=== PATIENT | male | born 1945 | race Caucasian/White ===

== ENCOUNTER 2020-06-18 10:09 | Emergency (ER) | payer MEDICARE, SELFPAY ==
--- NOTE | ~2020-06-18 | XR_ITS ---
XR chest 1V portable DATE: 06/18/2020 10:46 INDICATION: Altered mental state TECHNIQUE: Portable AP chest on June 18, 2020 at 1038 hours COMPARISON: 03/26/2018 two-view chest FINDINGS: Status post sternotomy and probable coronary bypass graft surgery. Heart size likely within normal range considering magnification associated with AP projection. Mild infiltrate or atelectasis is suggested in the left lower lung; otherwise no pulmonary infiltrate or consolidation, pleural effusion or pulmonary vascular congestion or pneumothorax. Surgical clips, right upper quadrant, likely due to cholecystectomy. IMPRESSION: Mild infiltrate or atelectasis in the left lower lung Reviewed, dictated and finalized at location [facility]. IFIED OPHTHALMIC SURGICAL ASSISTANT
--- NOTE | ~2020-06-18 | CT_ITS ---
EXAMINATION: CT brain wo con DATE: 06/18/2020 10:59 INDICATION: Altered mental status. Combativeness. TECHNIQUE: Computed tomography (CT) of the head was performed without intravenous contrast. The mA wa s adjusted according to patient size. Iterative reconstruction technique was employed. Exam dose: 60 5.33 mGy-cm total exam DLP. COMPARISON: 05/17/2011 MRI brain 05/16/2011 CT brain FINDINGS: Bilateral vertebral artery, basilar artery and bilateral carotid siphon internal carotid ar iraida calcifications. There is nonspecific diminished attenuation of the cerebral white matter, likely due to chronic small vessel ischemic changes. No intracranial mass lesion or hemorrhage or cerebrovascular accident is evident. No midline shift or mass effect effect. Mild bilateral basal ganglia calcifications. There is central and cortical cerebral and cerebellar atrophy. No subdural or epidural hematoma. Included paranasal sinuses and mastoid air cells are normally developed and aerated. No fracture or bone destruction of the cranial vault. IMPRESSION: Cerebral atherosclerosis and chronic small vessel ischemic changes of the cerebral white matter No acute intracranial finding Reviewed, dictated and finalized at [facility]. Reviewed, dictated and finalized at location [facility]. TACO
[2020-06-18 10:04] VITALS: BP 138/70; PULSE 74; RESP 18; TEMP 36.8; O2SAT 98
--- NOTE | 2020-06-18 10:10 | ECG_ITS ---
Measurements Intervals [place] Rate: 67 P: 63 [place]: 165 QRS: 40 QRSD: 105 T: 69 QT: 391 QTc: 413 Interpretive Statements SINUS RHYTHM INCOMPLETE RIGHT BUNDLE BRANCH BLOCK DELAYED PRECORDIAL R/S TRANSITION BORDERLINE ST-T WAVE ABNORMALITY- INF/HIGH LAT LEADS BASELINE ARTIFACT- I, II, III, AVR, AVL, AVF, V1-V2 BORDERLINE ECG Electronically Signed On 06-18-2020 12:41:06 CORN SHREDDER by Jack Ray D.O.
[2020-06-18] MEDS: LORazepam INJ (*CRX) 2 MG/ML VIAL (10:16)
--- NOTE | 2020-06-18 10:16 | PC.NURSE ---
1 MG Ativan given IVP per Mihai Duran PA-C at bedside VORB due to pt screaming and kicking, agitated.
--- NOTE | 2020-06-18 10:17 | PC.NURSE ---
Sitter at bedside due to pt trying to get up from stretcher.
--- NOTE | 2020-06-18 10:27 | PC.NURSE ---
Called dietary and ordered breakfast tray for pt at this time.
[2020-06-18 10:36] LABS: Basophils Percent Auto 0.4 % (0.2-1.2); Eosinophils Absolute Auto 0.1 K/mm3 (0-0.3); Eosinophils Percent Auto 1.2 % (0-4.4); Hematocrit 36.8 % (42.0-52.0); Immature Granulocyte Absolute 0.02 K/mm3 (0.00-0.031); Immature Granulocyte Percent A 0.3 % (0-0.5); Lymphocytes Absolute Auto 1.71 K/mm3 (0.9-3.2); Lymphocytes Percent Auto 24.7 % (18.3-44.2); Mean Corpuscular HGB Conc 32.6 g/dl (32-36); Mean Corpuscular Hemoglobin 29.1 pg (26-34); Mean Corpuscular Volume 89.1 fl (80-100); Mean Platelet Volume 10.7 fl (7.4-10.4); Monocytes Absolute Auto 0.7 K/mm3 (0.1-0.6); Monocytes Percent Auto 10.6 % (2.6-8.5); Neutrophils Absolute Auto 4.3 K/mm3 (1.3-6.7); Neutrophils Percent Auto 62.8 % (45.5-73.1); Platelet Count Result 162 k/mm3 (150-375); Red Blood Count 4.13 M/mm3 (4.6-6.20); Red Cell Distribution Width 13.8 % (11.5-14.5); White Blood Count 6.9 K/mm3 (4.5-10.0)
[2020-06-18 10:45] LABS: INR 1.3
--- NOTE | 2020-06-18 10:45 | PC.NURSE ---
Pt to CT scan via stretcher.
[2020-06-18 10:46] LABS: Partial Thromboplastin Time 34.5 SECONDS (22.3-36.8)
[2020-06-18 10:49] LABS: Lactic Acid Reflex 1.9 mmol/L (0.7-2.1)
[2020-06-18 10:51] LABS: Alanine Aminotransferase 26 U/L (4-50); Alkaline Phosphatase 75 U/L (38-126); Anion Gap 5 mmol/L (8-16); Aspartate Amino Transferase 33 U/L (17-59); Bilirubin,Total 1.2 mg/dL (0.2-1.3); Blood Urea Nitrogen 23 mg/dL (9-20); CRP < 0.5 mg/dL (<1.0); Calcium 8.9 mg/dL (8.4-10.2); Carbon Dioxide 33 mmol/L (22-30); Chloride 105 mmol/L (98-107); Estimated Glomerular Filt Rate > 60; Glucose 87 mg/dL (75-110); Lipase 35 U/L (23-300); Potassium 4.4 mmol/L (3.4-5.0); Sodium 143 mmol/L (137-145)
[2020-06-18 11:00] LABS: NT Pro B Type Natriuretic Pept 166 PG/ML (5-100); Troponin I < 0.012 ng/mL (0.000-0.034)
--- NOTE | 2020-06-18 11:09 | PC.NURSE ---
Per Mihai Duran PA-C, pt given 1MG Ativan IVP prior to catheterization. Pt placed on lock up worker. Family member at bedside. Pt given breakfast tray.
[2020-06-18 11:10] VITALS: PULSE 64; RESP 14; O2SAT 96
[2020-06-18 11:20] LABS: Add Urine Microscopic? YES; Appearance Urine Clear (Clear); Bacteria Urine Trace /hpf; Bilirubin Urine Negative (Negative); Blood Urine Negative (Negative); Color Urine Yellow (Yellow); Glucose Urine UA Negative (Negative); Ketones Urine Negative (Negative); Leukocyte Esterase Ur Negative LEU/UL (Negative); Mucus Urine Rare /lpf; Nitrate Urine Negative (Negative); Protein Urine 1+ mg/dL (Negative); Specific Grav Ur 1.028 (1.001-1.035); WBC Urine 0-3 /hpf
[2020-06-18] MEDS: SODIUM CHLORIDE 0.9% IV 500 ML 999 ML IV CONT (11:33)
[2020-06-18 12:05] VITALS: BP 125/78; PULSE 60; RESP 20; O2SAT 97
--- NOTE | 2020-06-18 13:11 | PC.NURSE ---
Spoke to Quyen BORJAS at [facility] - gave update on pt status.
[2020-06-18 13:12] VITALS: BP 122/68; PULSE 79; RESP 13; O2SAT 97
--- NOTE | 2020-06-18 14:02 | ED.GENADULT ---
HPI - General Adult General Chief complaint: Altered Mental Status Stated complaint: altercation/agitated Source: patient and family Mode of arrival: EMS Limitations: dementia History of Present Illness HPI narrative: Patient is a 74-year-old male with history of dementia that presents from long-term after going into a different members room and then became confused and combative with staff and was sent down to emergency department patient on arrival is demented and combative patient has orders for trazodone when he has behavioral changes and is followed by nurse practitioner at the long-term patient has otherwise not had any other injuries trauma or recent illness per EMS and long-term staff on arrival patient combative and confused is noted patient son is coming to the emergency department Related Data Home Medications Medication Instructions Recorded Confirmed divalproex 250 mg tablet,delayed 250 mg PO BID tablet 07/08/19 release Allergies Allergy/AdvReac Type Severity Reaction Status Date / Time No Known Allergies Allergy Unknown Verified 05/16/11 15:19 Review of Systems Review of Systems: ROS unobtainable: Yes unobtainable due to medical condition PMFSH Past Medical History Medical History Agitation Confusion Diarrhea Hallucinations Hypertensive heart disease without heart failure PAF (paroxysmal atrial fibrillation) Sleeping difficulties Wellness examination Family History Family History (Updated 12/16/13 @ 07:13 by DOCTOR UNKNOWN) Father Carcinoma of colon Social History Social History Smoking status: Former smoker Smoking end date: 04/21/84 Alcohol intake: never Gender identity (if verbalized by the patient): Male Exam Narrative: Exam Narrative: GENERAL: Well-appearing, well-nourished, and in no acute distress. HEAD: Normocephalic, atraumatic. EYES: PERRLA and EOMI. ENT: Nares clear, no rhinorrhea or epistaxis. Mucous membranes moist. CHEST: Clear to auscultation. No respiratory distress. No wheezes rales or rhonchi HEART: Regular rate and rhythm. No murmur heard. Normal peripheral pulses. ABDOMEN: Soft, nontender, nondistended EXTREMITIES: Normal range of motion. No edema. SKIN: Warm, dry, no rash. NEURO: No focal deficits. Cranial nerves II through XII grossly intact PSYCH: Patient confused and combative Course Course Emergency Course: Patient evaluated the emergency department son who is the power of litigation attorney is present discussion was made given the findings and discussion with primary care that the patient will be sent back to long-term for reevaluation and discussion of management going forward son is primarily interested in comfort of the patient and feels comfortable with the patient being sent back patient hemodynamically stable ABCs and vital signs intact and stable patient was given fluids and Ativan in the emergency department has been noncombative during his stay Consultations Consultation #1: Discussed case with primary care who agrees for the patient to be sent back will discussed case with son for further management Date: 06/18/20 Time: 14:05 Vital Signs Vital signs: Vital Signs Temperature 98.2 F 06/18/20 10:04 Pulse Rate 74 06/18/20 10:04 Respiratory Rate 18 06/18/20 10:04 Blood Pressure 138/70 06/18/20 10:04 Pulse Oximetry 98 06/18/20 10:04 Temperature 98.2 F 06/18/20 10:04 Pulse Rate 79 06/18/20 13:12 Respiratory Rate 13 06/18/20 13:12 Blood Pressure 122/68 06/18/20 13:12 Pulse Oximetry 97 06/18/20 13:12 Medical Decision Making MDM Narrative Medical decision making narrative: Patient in the room no distress at this time son is present discussion was made about sending the patient back primarily interested in comfort measures at the patient patient hemodynamically stable no distress will b
--- NOTE | 2020-06-18 14:14 | PC.NURSE ---
contacted [facility] to transfer patient back to [facility]. company declined. called [employer] they accepted with and eta [phone]
[2020-06-18 14:30] VITALS: BP 128/91; PULSE 89; RESP 17; O2SAT 97
--- NOTE | 2020-06-18 16:45 | PC.NURSE ---
I contacted rob due to being late picking up Mr. Carroll. Rob informed me that someone had cancelled the trip from our facility. associate director qa explained that another floor here at [facility] called and cancelled the trip. The trip cancellation was not intended for this patient. New eta for rob is [phone]
--- NOTE | 2020-06-18 17:06 | PC.NURSE ---
Dinner tray ordered for pt at this time.
[2020-06-18 17:19] VITALS: BP 117/60; PULSE 67; RESP 17; O2SAT 98
--- NOTE | 2020-06-18 17:47 | PC.NURSE ---
[facility] has arrived
== END 2020-06-18 17:47 ==
PROVIDERS: Emergency Medicine Emergency Medical Services; Emergency Provider Emergency Medicine; PCP Family Medicine
DX: R41.82 Altered mental status, unspecified (principal); I48.0 Paroxysmal atrial fibrillation; Z79.01 Long term (current) use of anticoagulants; I45.10 Unspecified right bundle-branch block; R94.31 Abnormal electrocardiogram [ECG] [EKG]; I11.9 Hypertensive heart disease without heart failure; Z87.891 Personal history of nicotine dependence; I67.2 Cerebral atherosclerosis; R91.8 Other nonspecific abnormal finding of lung field
CPT/HCPCS: 36415; 51701; 70450; 71045; 80053; 81001; 83605; 83690; 83880; 84484; 85025; 85610; 85730; 86140; 87040; 87077; 87186; 93005; 96361; 96374; 99284; J2060; J7040

== ENCOUNTER 2020-06-19 02:37 | Inpatient (IN) | payer MEDICARE, SELFPAY ==
[2020-06-19] VITALS (34 sets, daily range): BP systolic 101–180; BP diastolic 47–100; PULSE 70–101; RESP 0–22; TEMP 36.3–37.7; O2SAT 93–100
--- NOTE | 2020-06-19 | ECHO_ITS ---
Patient Info Name: Vic Carroll Age: 74 years : 1945 Gender: Male Ht: 69 in Wt: 180 lbs BSA: 2.01 m2 HR: 83 bpm BP: 119 / 54 mmHg Heart Rhythm: Sinus Rhythm Technical Quality: Good Exam Date: 06/19/2020 2:56 PM Exam Location: [facility] Patient Status: Inpatient Admit Date: 06/19/2020 Staff Ordering Physician: Isabel Joseph MD [employer] Manager: Jen Lynn RDCS Attending Provider: Home Antonio MD Exam Type: CA echo doppler color flow Study Info Indications R55 - Syncope and collapse Complete two-dimensional, color flow and Doppler transthoracic echocardiogram is performed. Summary 1. Complete two-dimensional, color flow and Doppler transthoracic echocardiogram is performed. 2. Left ventricular chamber dimension is normal. 3. Left ventricular systolic function is normal, estimated at 55-60%. 4. The left ventricular diastolic function is grade II diastolic dysfunction. 5. There is mild concentric increased left ventricular wall thickness. 6. Left atrial chamber dimension is mildly enlarged. 7. Mild aortic valve stenosis. Left Ventricle Left ventricular chamber dimension is normal. Left ventricular systolic function is normal, estimated at 55-60%. There is mild concentric increased left ventricular wall thickness. The left ventricular diastolic function is grade II diastolic dysfunction. Right Ventricle Right ventricular chamber dimension is normal. Left Atria Left atrial chamber dimension is mildly enlarged. Right Atria Right atrial chamber dimension is normal. Aortic Valve The aortic valve is trileaflet. There is moderate aortic valve sclerosis. There is mild aortic valve stenosis with a peak velocity of 211 cm/s, mean gradient of 10 mmHg, and aortic valve area of 2.8 cm2. Pulmonic Valve The pulmonic valve is not well visualized. There is mild pulmonic regurgitation. Mitral Valve The mitral valve has normal leaflets. There is trace mitral valve regurgitation. Tricuspid Valve The tricuspid valve leaflets are normal. Pericardium/Pleural The pericardium appears normal. Aorta The aortic root size at the sinus of Valsalva is normal. Left Ventricular Outflow Tract Name Value Normal LVOT 2D LVOT Diameter 2.1 cm LVOT Doppler LVOT Peak Gradient 9 mmHg LVOT Mean Gradient 6 mmHg LVOT VTI 34 cm LVOT VTI/AV VTI Ratio 0.8 LVOT Stroke Volume 116 ml LVOT CO 8.9 l/min LVOT CI 4.4 l/min/m2 Pulmonic Valve Name Value Normal RVOT Doppler RVOT Peak Gradient 3 mmHg PV Doppler PV Peak Gradient
--- NOTE | ~2020-06-19 | XR_ITS ---
EXAMINATION: XR pelvis 1-2V DATE: 06/19/2020 03:29 INDICATION: Pelvis injury. TECHNIQUE: An anteroposterior view of the pelvis was obtained. COMPARISON: None. FINDINGS: There is a subcapital fracture of left femoral neck. The distal fracture fragment demonstra esteban impaction and 10 degrees valgus angulation. There is mild osteoarthritis of the hips. There is se cha lumbar spondylosis. IMPRESSION: 1. Subchondral fracture of left femoral neck. 2. Mild osteoarthritis of the hips. Reviewed, dictated and finalized at location A. ROL SYSTEMS ENGINEER
--- NOTE | ~2020-06-19 | CT_ITS ---
EXAMINATION: CT brain wo con DATE: 06/19/2020 03:16 INDICATION: Head injury. TECHNIQUE: Computed tomography (CT) of the head was performed without intravenous contrast. The mA wa s adjusted according to patient size. Iterative reconstruction technique was employed. The dose-lengt h product was 460.49 mGy-cm. 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 There are scattered areas of low attenuation in th e cerebral white matter. There is no intracranial hemorrhage, acute infarction, or abnormal intracran ial mass lesion. The ventricles are normal in size. There are likely changes of ocular lens replaceme nt surgeries. There is mild mucosal thickening in the ethmoid sinuses. The mastoid air cells are norm al. IMPRESSION: 1. Old infarct in left cerebellum. 2. Mild nonspecific cerebral white matter disease, which likely represents chronic small vessel ische rick disease. Reviewed, dictated and finalized at location A. HENHAND IMPRESSION: 1. Old infarct in left cerebellum. 2. Mild nonspecific cerebral white matter disease, which likely represents crown and bridge dental lab technician scott small vessel ischemic disease.
--- NOTE | ~2020-06-19 | XR_ITS ---
EXAMINATION: XR hip LT min 2V DATE: 06/19/2020 06:15 INDICATION: Left hip injury. TECHNIQUE: 2 views of left hip were obtained. COMPARISON: None. FINDINGS: There is a subcapital fracture of left femoral neck. The distal fracture fragment demonstra esteban impaction and 10 degrees valgus angulation. There is mild left hip osteoarthritis. IMPRESSION: 1. Subcapital fracture of left femoral neck. 2. Mild left hip osteoarthritis. Reviewed, dictated and finalized at location A. ON SAWYER
--- NOTE | ~2020-06-19 | XR_ITS ---
EXAMINATION: XR surgery orthopedic DATE: 06/19/2020 17:37 INDICATION: Subcapital fracture of left femoral neck. TECHNIQUE: 3 intraoperative fluoroscopic views of left hip were obtained. I was not present. Fluorosc opy exposure time was 210 seconds. COMPARISON: Left hip radiographs 06/19/2020 FINDINGS: There is a subcapital fracture of left femoral neck with impaction with fixation with 3 lag screws. IMPRESSION: 1. Subcapital fracture of left femoral neck with fixation with 3 lag screws. Reviewed, dictated and finalized at location A. PILE DRIVER OPERATOR
--- NOTE | ~2020-06-19 | XR_ITS ---
EXAMINATION: XR knee LT min 4V DATE: 06/19/2020 06:02 INDICATION: Left knee injury. TECHNIQUE: 4 views of left knee were obtained. COMPARISON: None. FINDINGS: Bone alignment is normal. No fracture. There is mild tricompartmental osteoarthritis. No kn ee joint effusion. IMPRESSION: 1. Mild left knee osteoarthritis. Reviewed, dictated and finalized at location A. PPER
--- NOTE | ~2020-06-19 | XR_ITS ---
EXAMINATION: XR chest 1V DATE: 06/19/2020 03:29 INDICATION: Fall. TECHNIQUE: A single frontal view of the chest was obtained. COMPARISON: Chest single view 06/18/2020 FINDINGS: There is mild atelectasis in lingula. No pleural effusion or pneumothorax. The heart size i s normal. Median sternotomy wires and mediastinal surgical clips are seen, likely from prior coronary artery bypass grafting. Surgical clips in the right upper quadrant are likely from cholecystectomy. IMPRESSION: 1. Mild atelectasis in lingula. Reviewed, dictated and finalized at location A. CLE WORKER
--- NOTE | ~2020-06-19 | CT_ITS ---
EXAMINATION: CT abdomen pelvis wo con DATE: 06/19/2020 04:17 INDICATION: Abdominal pain. TECHNIQUE: Computed tomography (CT) of the abdomen and pelvis was performed without intravenous contr ast. Automated exposure control and iterative reconstruction technique were employed. The dose-length product was 753.20 mGy-cm. COMPARISON: None. FINDINGS: The visualized portions of the lung bases demonstrate mild atelectasis. No pleural effusion . The heart size is normal. There is an interatrial closure device. There are coronary artery calcifi cations. No pericardial effusion. There are changes of coronary artery bypass grafting. The liver and spleen are normal. There are changes of cholecystectomy. The pancreas, adrenal glands, and kidneys a re normal. There is no urolithiasis. The prostate is moderately enlarged. The appendix is normal. The re are no dilated loops of bowel. There are no pathologically enlarged lymph nodes. There is no free intraperitoneal fluid. There is a subcapital fracture of the left femoral neck. The distal fracture f ragment demonstrates impaction and mild posterior and valgus angulation. There is severe lumbar spond ylosis. IMPRESSION: 1. Subcapital fracture of left femoral neck. Reviewed, dictated and finalized at location A. TREATER
--- NOTE | ~2020-06-19 | CT_ITS ---
EXAMINATION: CT cervical spine wo con DATE: 06/19/2020 03:16 INDICATION: Neck injury. TECHNIQUE: Computed tomography (CT) of the cervical spine was performed without intravenous contrast. Automated exposure control and iterative reconstruction technique were employed. The dose-length pro duct was 605.33 mGy-cm. COMPARISON: None FINDINGS: There is kyphosis and 8 degrees levocurvature of cervical spine. Vertebral body heights are normal. There is mildly decreased disc height at C2-C3 and C4-C5 and severely decreased disc height at C5-C6, C6-C7, and C7-T1. The following disc levels are specifically discussed: C2-C3: There is mild bilateral uncovertebral joint osteoarthritis. There is mild right and severe lef t facet joint osteoarthritis. There is mild left neural foraminal stenosis. There is no central canal stenosis. C3-C4: There is mild right and moderate left uncovertebral joint osteoarthritis. There is severe bila teral facet joint osteoarthritis. There is mild bilateral neural foraminal stenosis. There is mild ce ntral canal stenosis. C4-C5: There is mild bilateral uncovertebral joint osteoarthritis. There is severe right and mild lef t facet joint osteoarthritis. There is mild bilateral neural foraminal stenosis. There is mild centra l canal stenosis. C5-C6: There is severe bilateral uncovertebral joint osteoarthritis. There is mild bilateral facet thalia int osteoarthritis. There is mild right and moderate left neural foraminal stenosis. There is mild ce ntral canal stenosis. C6-C7: There is severe bilateral uncovertebral joint osteoarthritis. There is mild bilateral facet thalia int osteoarthritis. There is moderate right and mild left neural foraminal stenosis. There is mild ce ntral canal stenosis. C7-T1: There is severe bilateral uncovertebral joint osteoarthritis. There is severe bilateral facet joint osteoarthritis. There is mild bilateral neural foraminal stenosis. There is mild central canal stenosis. IMPRESSION: 1. No fracture. 2. Severe cervical spondylosis. Reviewed, dictated and finalized at location A. ILING MACHINE SETUP OPERATOR
--- NOTE | 2020-06-19 03:09 | PC.NURSE ---
pt in CT at this time
[2020-06-19 03:40] LABS: Basophils Percent Auto 0.4 % (0.2-1.2); Eosinophils Percent Auto 0.4 % (0-4.4); Hematocrit 37.6 % (42.0-52.0); Hemoglobin 12.5 g/dL (14.0-18.0); Immature Granulocyte Absolute 0.03 K/mm3 (0.00-0.031); Immature Granulocyte Percent A 0.4 % (0-0.5); Lymphocytes Absolute Auto 1.05 K/mm3 (0.9-3.2); Lymphocytes Percent Auto 12.5 % (18.3-44.2); Mean Corpuscular HGB Conc 33.2 g/dl (32-36); Mean Corpuscular Hemoglobin 29.4 pg (26-34); Mean Corpuscular Volume 88.5 fl (80-100); Mean Platelet Volume 10.5 fl (7.4-10.4); Monocytes Absolute Auto 0.7 K/mm3 (0.1-0.6); Monocytes Percent Auto 8.2 % (2.6-8.5); Neutrophils Absolute Auto 6.6 K/mm3 (1.3-6.7); Neutrophils Percent Auto 78.1 % (45.5-73.1); Platelet Count Result 154 k/mm3 (150-375); Red Blood Count 4.25 M/mm3 (4.6-6.20); Red Cell Distribution Width 13.6 % (11.5-14.5); White Blood Count 8.4 K/mm3 (4.5-10.0)
--- NOTE | 2020-06-19 03:48 | ED.GENADULT ---
HPI - General Adult General Chief complaint: Unspecified Stated complaint: falls Time Seen by Provider: 06/19/20 02:37 Source: RN notes reviewed History of Present Illness HPI narrative: Patient presents to emergency department from [facility] for a fall. The fall was witnessed by staff and the patient had slowly gone down to his knees and down to his head rubbing his forehead on the ground causing a rug burn. Per the staff the patient has been more agitated this evening. The patient does have a history of dementia with agitation is on as needed trazodone. Patient is currently awake and alert and cooperative in bed he denies any chest pain shortness of breath abdominal pain nausea vomiting or extremity pain Related Data Home Medications Medication Instructions Recorded Confirmed divalproex 250 mg tablet,delayed 250 mg PO BID tablet 07/08/19 release Allergies Allergy/AdvReac Type Severity Reaction Status Date / Time No Known Allergies Allergy Unknown Verified 05/16/11 15:19 Review of Systems Review of Systems: Narrative: Gen.: Denies fevers or chills Eyes: Denies eye pain or visual change ENT: Denies congestion Respiratory: Denies shortness of breath CV: Denies chest pain GI: Denies abdominal pain nausea, emesis Musculoskeletal: Denies back pain or muscle pain Neuro: Denies loss of consciousness or headache Skin: See HPI Except as documented, all other systems reviewed and negative [facility] Past Medical History Medical History Agitation Confusion Diarrhea Hallucinations Hypertensive heart disease without heart failure PAF (paroxysmal atrial fibrillation) Sleeping difficulties Wellness examination Family History Family History (Updated 12/16/13 @ 07:13 by DOCTOR UNKNOWN) Father Carcinoma of colon Social History Social History Smoking status: Former smoker Smoking end date: 04/21/84 Alcohol intake: never Gender identity (if verbalized by the patient): Male Exam Narrative: Exam Narrative: APPEARANCE: No acute distress, nontoxic, resting in bed EYES: PERRL HEENT: Normocephalic, superficial abrasion over right forehead nares patent Neck: Supple no midline tenderness palpation RESPIRATORY: No respiratory distress Clear to auscultation bilaterally with no rhonchi wheezing or rales. CARDIOVASCULAR: Regular rate and rhythm without murmurs rubs or gallops. ABDOMINAL: Soft, nontender, nondistended, no rebound or guarding MUSCULOSKELETAl: Moves all extremities. No clubbing, cyanosis or edema. No tenderness palpation bilateral upper and lower extremities with full range of motion without pain NEURO: Awake and alert x 1. Following commands, speech normal, no focal deficits SKIN:: Warm, dry. Facial abrasion forehead PSYCHIATRIC: Normal affect/mood, department Course Course Emergency Course: Reviewed old records patient had a UA within the past 24 hours was normal We will get up and ambulate in ED with no difficulty I discussed with PALLETISER OPERATOR Crystal Stone patient's PCP. At this time she is in agreement with patient returning to the facility Discussed with patient results of workup and diagnosis. Discussed need for follow-up with primary care, proper use of medication, and reasons to return to the emergency department. Patient understands and agrees to current treatment plan Vital Signs Vital signs: Vital Signs Temperature 97.7 F 06/19/20 02:38 Pulse Rate 78 06/19/20 02:38 Respiratory Rate 22 H 06/19/20 02:38 Blood Pressure 121/59 L 06/19/20 02:38 Pulse Oximetry 93 06/19/20 02:38 Temperature 97.7 F 06/19/20 02:38 Pulse Rate 80 06/19/20 05:25 Respiratory Rate 19 06/19/20 05:25 Blood Pressure 109/52 L 06/19/20 05:25 Pulse Oximetry 99 06/19/20 05:25 Medical Decision Making Vital Signs Vital Signs: Vital Signs Temperature 97.7 F 06/19/20 02:38 Pulse
[2020-06-19 03:51] LABS: Partial Thromboplastin Time 31.5 SECONDS (22.3-36.8)
[2020-06-19 03:52] LABS: Alanine Aminotransferase 27 U/L (4-50); Alkaline Phosphatase 88 U/L (38-126); Anion Gap 4 mmol/L (8-16); Aspartate Amino Transferase 36 U/L (17-59); Bilirubin,Total 1.3 mg/dL (0.2-1.3); Blood Urea Nitrogen 19 mg/dL (9-20); Calcium 9.1 mg/dL (8.4-10.2); Carbon Dioxide 32 mmol/L (22-30); Chloride 105 mmol/L (98-107); Estimated Glomerular Filt Rate > 60; Glucose 109 mg/dL (75-110); Potassium 3.9 mmol/L (3.4-5.0); Sodium 141 mmol/L (137-145)
[2020-06-19 05:13] LABS: Lipase 52 U/L (23-300)
--- NOTE | 2020-06-19 05:56 | ECG_ITS ---
Measurements Intervals [place] Rate: 80 P: 68 [place]: 177 QRS: 33 QRSD: 110 T: 123 QT: 407 QTc: 470 Interpretive Statements SINUS RHYTHM NONSPECIFIC ST & T-WAVE ABNORMALITY- DIFFUSE LEADS BASELINE ARTIFACT- I, II, III, AVR, AVL, AVF, V1-V3 BORDERLINE ECG Electronically Signed On 06-19-2020 7:11:12 MECHANICAL MANUFACTURING ENGINEER by Jack Ray D.O.
[2020-06-19] MEDS: TETANUS,DIPHTHERIA,AC PERTUSSIS ADULT (0.5 ML) BOOSTRIX IM (07:05)
--- NOTE | 2020-06-19 07:23 | PC.NURSE ---
report given to reid champagne
--- NOTE | 2020-06-19 09:15 | ADMGEN ---
This patient, Vic Carroll, was admitted to Medical Room 242-. Patient/family oriented to hospital policies and general routines including ID bracelet, bed and alarms, visiting hours, pain management, procedures, bathroom and other care routines, personal items, smoking policy, room service/diet, and visiting hours. Information on how to activate the Rapid Response Team has been discussed. Patient/Family are encouraged to report perceived risks to care and to ask questions if they do not understand what they are told or what they should do.
--- NOTE | 2020-06-19 09:21 | PM.CNOR ---
Assessment and Plan Assessment and plan (1) Hip fracture: Qualifiers: Encounter type: initial encounter Fracture type: closed Laterality: left Qualified Code(s): S72.002A - Fracture of unspecified part of neck of left femur, initial encounter for closed fracture Code(s): S72.009A - Fracture of unspecified part of neck of unspecified femur, initial encounter for closed fracture Status: Acute Assessment and Plan: History, exam and radiographs reviewed. Radiographs/CT reveal a subcapital fracture of left femoral neck. Attempted to review the fracture type and injury as well as radiographs however patient has dementia and is unable to comprehend. Attempted to contact family but no answer. Patient would benefit from a CRPP due to his dementia and likelihood of noncompliance with NWB of the LLE for at minimum of 6 weeks with the potential for a nonunion. Will begin surgery planning process. Risks of surgery including but not limited to neurovascular damage, wound complications, blood clot, pulmonary embolus, stroke, myocardial infarction, anesthetic risks up to and including were reviewed. Continued pain and possible dysfunction were explained. No guarantees were offered. Patient unable to comprehend. Awaiting conversation with POA. Plan: CRPP left hip pending medical clearance and further discussion with POA. Obtain consent from POA. Bedrest. Pain control. Ice lateral hip. NPO. (2) Altered mental status: Qualifiers: Altered mental status type: unspecified Qualified Code(s): R41.82 - Altered mental status, unspecified Code(s): R41.82 - Altered mental status, unspecified Status: Acute Assessment and Plan: Patient unable to answer questions. (3) Fall: Qualifiers: Encounter type: initial encounter Qualified Code(s): W19.XXXA - Unspecified fall, initial encounter Code(s): W19.XXXA - Unspecified fall, initial encounter Status: Acute Assessment and Plan: HIGH FALL RISK History of Present Illness HPI Consult date: 06/19/20 Consult reason: fracture (Left Subcapital Femoral Neck Fracutre ) Chief complaint: Left hip fracture Narrative: 74-year-old male admitted from his assisted living facility after a witnessed fall onto bilateral knees. Per the staff at [facility], the patient had been increasingly agitated prior to his witnessed fall. He does have a history of dementia and agitation in intermittently requires use of trazodone. Upon arrival to the emergency room radiographs were obtained. Radiographs of the left hip and pelvis CT revealed a subcapital fracture of left femoral neck. Orthopedic consult requested by emergency room physician. Review of Systems Review of Systems: ROS unobtainable: Yes unobtainable due to mental status PMFSH Past Medical History Medical History Agitation Confusion Diarrhea Hallucinations Hypertensive heart disease without heart failure PAF (paroxysmal atrial fibrillation) Sleeping difficulties Wellness examination Family History Family History Father Carcinoma of colon Social History Social History Smoking status: Former smoker Smoking end date: 04/21/84 Alcohol intake: never Gender identity (if verbalized by the patient): Male Comments Attempted to contact family to review medical history. Medical history obtained from records. Patient unable to answer appropriate questions. Meds Home Medications and Allergies Home Medications Medication Instructions Recorded Confirmed Type atorvastatin 10 mg tablet 10 mg PO DAILY #90 tablet 06/18/19 06/18/19 Rx donepezil 10 mg tablet 10 mg PO ONCE #90 tablet 06/18/19 06/18/19 Rx fluticasone propionate 50 2 spray NASAL DAILY #19.8 ml 06/18/19 06/18/19 Rx
[2020-06-19] MEDS: SODIUM CHLORIDE 0.9% IV 1,000 ML 100 ML IV CONT (09:25)
--- NOTE | 2020-06-19 12:43 | WPDANESEPPF ---
Anes - Initial Pre Proc Eval Procedure: Operation Date: 06/19/20 17:00 Proposed Procedures p Closed Reduction Percutaneous Pinning Left Hip - Man Zaidi MD Date/Time: 06/19/20 12:43 Pre Op Diagnosis: Left hip fracture Patient Data Age: 74 Gender: M Height: 1.75 m Weight: 77.7 kg Last Vital Signs Temp 37.0 C 06/19/20 09:20 Pulse 79 06/19/20 09:20 Resp 18 06/19/20 09:20 BP 119/54 L 06/19/20 09:20 Pulse Ox 95 06/19/20 09:20 Allergies Allergy/AdvReac Type Severity Reaction Status Date / Time No Known Allergies Allergy Unknown Verified 06/19/20 10:36 Home Medications Medication Instructions Recorded Confirmed Type loperamide 2 mg tablet 2 mg PO Q4H PRN #30 tablet 06/18/19 06/19/20 Rx memantine 28 mg capsule 28 mg PO DAILY #90 each 06/18/19 06/19/20 Rx sprinkle,extended release 24hr divalproex 250 mg tablet,delayed 250 mg PO Q8H tablet 07/08/19 06/19/20 History release atorvastatin 10 mg PO QPM 06/19/20 06/19/20 History cetirizine 10 mg PO DAILY 06/19/20 06/19/20 History citalopram 10 mg PO DAILY 06/19/20 06/19/20 History docusate sodium [Colace] 100 mg PO BID 06/19/20 06/19/20 History donepezil 5 mg PO QPM 06/19/20 06/19/20 History fluticasone propionate 2 spray NASAL DAILY PRN 06/19/20 06/19/20 History losartan 50 mg PO QPM 06/19/20 06/19/20 History rivaroxaban [Xarelto] 20 mg PO QPM 06/19/20 06/19/20 History trazodone 50 mg PO QPM 06/19/20 06/19/20 History Laboratory Tests 06/19/20 06/19/20 06/19/20 03:34 03:34 03:34 WBC 8.4 K/mm3 K/mm3 (4.5-10.0) RBC 4.25 M/mm3 L M/mm3 (4.6-6.20) Hgb 12.5 g/dL L g/dL (14.0-18.0) Hct 37.6 % L % (42.0-52.0) MCV 88.5 fl fl (80-100) MCH 29.4 pg pg (26-34) MCHC 33.2 g/dl g/dl (32-36) RDW 13.6 % % (11.5-14.5) Plt Count 154 k/mm3 k/mm3 (150-375) MPV 10.5 fl H fl (7.4-10.4) Immature Gran % (Auto) 0.4 % % (0-0.5) Neut % (Auto) 78.1 % H % (45.5-73.1) Lymph % (Auto) 12.5 % L % (18.3-44.2) [place] % (Auto) 8.2 % % (2.6-8.5) Eos % (Auto) 0.4 % % (0-4.4) Baso % (Auto) 0.4 % % (0.2-1.2) Lymph # (Auto) 1.05 K/mm3 K/mm3 (0.9-3.2) [place] # (Auto) 0.7 K/mm3 H K/mm3 (0.1-0.6) Eos # (Auto) 0.0 K/mm3 K/mm3 (0-0.3) Baso # (Auto) 0.0 K/mm3 K/mm3 (0.0-0.1) Abs Immat Gran (auto) 0.03 K/mm3 K/mm3 (0.00-0.031) Absolute Neuts (auto) 6.6 K/mm3 K/mm3 (1.3-6.7) Absolute Nucleated RBC 0.0 K/mm3 K/mm3 (0.0-0.012) Nucleated RBC % 0.0 % % (0.0-0.2) PT 14.0 Seconds Seconds (11.1-14.7) INR 1.0 APTT 31.5 SECONDS SECONDS (22.3-36.8) Sodium 141 mmol/L mmol/L (137-145) Potassium 3.9 mmol/L mmol/L (3.4-5.0) Chloride 105 mmol/L mmol/L (98-107) Carbon Dioxide 32 mmol/L H mmol/L (22-30) Anion Gap 4 mmol/L L mmol/L (8-16) BUN 19 mg/dL mg/dL (9-20) Creatinine 0.70 mg/dL mg/dL (0.7-1.3) Estim Creat Clear Calc Not Reportable Estimated GFR > 60 (59 - ) Glucose 109 mg/dL mg/dL (75-110) Calcium 9.1 mg/dL mg/dL (8.4-10.2) Total Bilirubin 1.3 mg/dL mg/dL (0.2-1.3) AST 36 U/L U/L (17-59) ALT 27 U/L U/L (4-50) Alkaline Phosphatase 88 U/L U/L (38-126) Total Protein 7.0 g/dL g/dL (6.3-8.2) Albumin 4.0 g/dL g/dL (3.5-5.1) Lipase Blood Type Antibody Screen 06/19/20 06/19/20 03:34 05:56 WBC RBC Hgb Hct MCV MCH MCHC RDW Plt Count MPV Immature Gran % (Auto) Neut % (Auto) Lymph % (Auto) [place] % (Auto) Eos % (Au
--- NOTE | 2020-06-19 13:52 | PM.IMHP ---
H&P: HPI History of Present Illness Date/Time: 06/19/20 13:52 Chief Complaint: Fall and fracture of the hip. Narrative: Vic Carroll is a 74 [facility] with history of dementia and agitation, patient had been agitated apparently patient had a witnessed fall by correction staff he landed on in his knees and has a rug burn on his forehead and patient was brought to the emergency department for further evaluation, hip x-ray showed subchondral fracture of left femoral neck. Patient is a poor historian unable to provide any review of symptoms or history, most of the history is recorded from electronic chart, patient chest x-ray showed patient Has Had CABG suggesting patient has a coronary artery disease to further evaluate we have ordered cardiac echo and further recommendation to follow, patient will be seen by orthopedic surgery team and will follow-up and plan. Review of Systems Review of Systems: ROS unobtainable: Yes unobtainable due to medical condition PMFSH Past Medical History Medical History (Updated 06/19/20 @ 14:05 by Isabel Joseph MD) Agitation Confusion Coronary artery disease involving [place] coronary artery of [place] heart Dementia, unspecified, without behavioral disturbance Diarrhea Essential hypertension Hendrix disease Hallucinations Hereditary hemochromatosis Hip fracture Hyperlipidemia Hypertensive heart disease without heart failure Non-alcoholic fatty liver disease Old [place] (myocardial infarction) PAF (paroxysmal atrial fibrillation) Sleeping difficulties Wellness examination Surgical History Surgical History (Updated 06/19/20 @ 12:45 by Andrews Pruitt MD) Hx of CABG S/P PDA repair Family History Family History Father Carcinoma of colon Social History Social History Smoking status: Unknown if ever smoked Smoking end date: 04/21/84 Alcohol intake: never Substance use: never Substance use type: does not use Gender identity (if verbalized by the patient): Male Sexual Orientation (if Verbalized by the Patient): Straight or Heterosexual Spiritual care concerns: No Meds Home Medications and Allergies Home Medications Medication Instructions Recorded Confirmed Type loperamide 2 mg tablet 2 mg PO Q4H PRN #30 tablet 06/18/19 06/19/20 Rx memantine 28 mg capsule 28 mg PO DAILY #90 each 06/18/19 06/19/20 Rx sprinkle,extended release 24hr divalproex 250 mg tablet,delayed 250 mg PO Q8H tablet 07/08/19 06/19/20 History release atorvastatin 10 mg PO QPM 06/19/20 06/19/20 History cetirizine 10 mg PO DAILY 06/19/20 06/19/20 History citalopram 10 mg PO DAILY 06/19/20 06/19/20 History docusate sodium [Colace] 100 mg PO BID 06/19/20 06/19/20 History donepezil 5 mg PO QPM 06/19/20 06/19/20 History fluticasone propionate 2 spray NASAL DAILY PRN 06/19/20 06/19/20 History losartan 50 mg PO QPM 06/19/20 06/19/20 History rivaroxaban [Xarelto] 20 mg PO QPM 06/19/20 06/19/20 History trazodone 50 mg PO QPM 06/19/20 06/19/20 History Allergies Allergy/AdvReac Type Severity Reaction Status Date / Time No Known Allergies Allergy Unknown Verified 06/19/20 10:36 Vital Signs Vital Signs - 24 hr 06/19/20 02:38 06/19/20 03:22 06/19/20 03:31 Temperature 97.7 F Pulse Rate 78 Respiratory Rate 22 H 0 L Blood Pressure 121/59 L 139/73 Pulse Oximetry 93 93 06/19/20 03:55 06/19/20 04:02 06/19/20 04:33 Temperature Pulse Rate 70 Respiratory Rate 12 Blood Pressure 138/74 131/68 134/70 Pulse Oximetry 99 06/19/20 04:46 06/19/20 05:25 06/19/20 05:53 Temperature Pulse Rate 80 Respiratory Rate 19 Blood Pressure 124/79 109/52 L 127/61 Pulse Oximetry 99 06/19/20 06:01 06/19/20 06:32 06/19/20 07:02 Temperature Pulse Rate Respiratory Rate Blood Pressure 101/65 122/52 L 124/54 L Pulse Oximetry
--- NOTE | 2020-06-19 15:41 | PC.NURSE ---
To OR per bed 1520. Consent signed by Darren sheth/ [facility].
[2020-06-19] MEDS: LACTATED RINGERS 1,000 ML 30 ML IV CONT (15:42)
[2020-06-19] MEDS: TRANEXAMIC ACID 1,000MG/ISO100 1,000 MG/100 ML BAG 200 MG IVPB (15:53)
--- NOTE | 2020-06-19 15:54 | SUR.PREOP ---
1530; PT ARRIVED INTO PREOP PER BED. PT ALERT TO SELF ONLY. RESTLESS. FOLDING SHEETS ON BED. PT VERY CONFUSED/DISORIENTED.
--- NOTE | 2020-06-19 15:56 | SUR.PREOP ---
PT DOES NOT TOLERATE SHAVING OF LT HIP. PT TALKING NONSENSE. CALM. DOES GET AGITATED EASILY. NURSE AT BEDSIDE
--- NOTE | 2020-06-19 16:03 | SUR.PREOP ---
PT REMOVED ID BRACELET. NEW ID BRACELET PLACED ON RT ANKLE
--- NOTE | 2020-06-19 16:16 | WPDHPUPDATE1 ---
History and Physical Update Update Date/Time: 06/19/20 16:16 History and Physical has been reviewed, including an updated exam of the patient. There are NO changes in the patient's condition. Risks, benefits, and alternatives have been discussed and questions answered. Patient agrees to proceed with procedure.
[2020-06-19] MEDS: ceFAZolin 2 GM/D5W 50 ML 2 GM/50 ML BAG IVPB ×2 (16:19→21:07)
--- NOTE | 2020-06-19 17:37 | PM.PROC ---
Procedure Note - Detailed Date of procedure: 06/19/20 Pre-op diagnosis: Left hip fracture LEFT FEMORAL NECK FRACTURE Post-op diagnosis: same Procedure performed: CLOSED REDUCTION PERCUTANEOUS PINNING LEFT FEMORAL NECK Description of procedure: THE PATIENT WAS TAKEN TO THE OPERATING ROOM AND PLACED UNDER GENERAL ANESTHESIA. THE PATIENT WAS PLACED ON A FRACTURE TABLE. USING MILD TRACTION AND INTERNAL ROTATION THE LEFT FEMORAL NECK FRACTURE WAS REDUCED TO ANATOMICAL POSITION. NEXT THE LEFT LOWER EXTREMITY WAS PREPPED AND DRAPED IN THE STERIL FASHION FROM THE KNEE TO THE ILIAC CREST. THE INCISION WAS MADE ON THE LATERAL HIP JUST DISTAL TO THE GREATER TROCHANTER DOWN TO THE BONE. BLEEDERS WERE CAUTERIZED. 3 GUIDE PINS WERE PLACED THROUGH THE FEMORAL NECK AND PASSED THE FRACTURE SITE AND IN TO THE SUBCHONDRAL BONE OF THE FEMORAL HEAD. 3, 7.3 CANNULATED SCREWS WERE PLACED OVER THE GUIDE PINS AND THESE WERE SHOWN TO BE IN GOOD POSITION PER FLUOROSCOPY ON BOTH THE AP AND LATERAL VIEWS. THE ALL HAD EXCELLENT BITES. THE WOUND WAS WASHED WELL. THE DEEP FASCIAL LAYER WAS APPROXIMATED WITH #1 VICRYL SUTURE, THE SUBCUTANEOUS LAYER WITH 2-0 VICRYL AND THE SKIN WAS APPROXIMATED WITH RUSS. A STERILE DRESSING WAS PLACED. THE PATIENT WAS TRANSFERRED TO A REGULAR BED AND WAS EXTUBATED AND SENT TO RECOVERY ROOM Anesthesia: LINDSAY Surgeon: Man Zaidi MD Estimated blood loss (mL): 50 Complications: No immediate complications Condition: stable Disposition: PACU
[2020-06-19] MEDS: fentaNYL CITRATE INJ (*CRX) 100 MCG/2 ML VIAL 25 MCG IV PUSH ×2 (18:23→18:35)
[2020-06-19] MEDS: NALOXONE HCL 0.4 MG/ML VIAL IV PUSH (21:30)
[2020-06-19] MEDS: SODIUM CHLORIDE 0.9% IV 1,000 ML 125 ML IV CONT (21:30)
--- NOTE | 2020-06-19 21:39 | PC.NURSE ---
Pt is lethargic but arousable at this time opened eyes and said yes when name was spoken and then spit. Pt is confused and unable to follow direction and then closed eyes.
[2020-06-20 00:33] VITALS: BP 149/75; PULSE 86; RESP 14; TEMP 37.2; O2SAT 95
[2020-06-20 04:33] VITALS: BP 149/93; PULSE 99; RESP 16; TEMP 36.9; O2SAT 93
[2020-06-20] MEDS: DIVALPROEX SODIUM DR 250 MG TABEC PO ×3 (05:12→20:41)
[2020-06-20] MEDS: ceFAZolin 2 GM/D5W 50 ML 2 GM/50 ML BAG IVPB ×2 (05:12→13:17)
[2020-06-20 06:38] LABS: Basophils Percent Auto 0.2 % (0.2-1.2); Eosinophils Percent Auto 0.1 % (0-4.4); Hematocrit 35.3 % (42.0-52.0); Hemoglobin 11.6 g/dL (14.0-18.0); Immature Granulocyte Absolute 0.07 K/mm3 (0.00-0.031); Immature Granulocyte Percent A 0.5 % (0-0.5); Lymphocytes Absolute Auto 0.96 K/mm3 (0.9-3.2); Lymphocytes Percent Auto 6.8 % (18.3-44.2); Mean Corpuscular HGB Conc 32.9 g/dl (32-36); Mean Corpuscular Hemoglobin 28.6 pg (26-34); Mean Corpuscular Volume 86.9 fl (80-100); Mean Platelet Volume 11.1 fl (7.4-10.4); Monocytes Percent Auto 7.3 % (2.6-8.5); Neutrophils Percent Auto 85.1 % (45.5-73.1); Platelet Count Result 153 k/mm3 (150-375); Red Blood Count 4.06 M/mm3 (4.6-6.20); Red Cell Distribution Width 13.5 % (11.5-14.5); White Blood Count 14.1 K/mm3 (4.5-10.0)
[2020-06-20 06:53] LABS: Anion Gap 4 mmol/L (8-16); Blood Urea Nitrogen 13 mg/dL (9-20); Calcium 8.4 mg/dL (8.4-10.2); Carbon Dioxide 32 mmol/L (22-30); Chloride 104 mmol/L (98-107); Estimated CRCL calculation 69 ml/min; Estimated Glomerular Filt Rate > 60; Glucose 119 mg/dL (75-110); Potassium 4.1 mmol/L (3.4-5.0); Sodium 140 mmol/L (137-145)
[2020-06-20] MEDS: MORPHINE SULFATE (*CRX) 2 MG/ML INJ IV PUSH ×2 (06:55→12:36)
[2020-06-20] MEDS: SODIUM CHLORIDE 0.9% IV 1,000 ML 125 ML IV CONT (08:03)
--- NOTE | 2020-06-20 08:05 | P.PNAN_ITS ---
Anes - Prog Note Post-Op Date/Time: 06/20/20 08:05 Cardiovascular status: normal Respiratory status: normal Airway patency: baseline Mental status: baseline Post-Op hydration status: normal Vital Signs: Last Vital Signs Temp 36.9 C 06/20/20 04:33 Pulse 99 06/20/20 04:33 Resp 16 06/20/20 04:33 BP 149/93 H 06/20/20 04:33 Pulse Ox 93 06/20/20 04:33 Pain Score (VAS): 3 I/O: Intake & Output 06/19/20 06/20/20 06/20/20 23:59 07:59 15:59 Intake Total 300 1050 Output Total 150 1400 Balance 150 -350 Laboratory Tests 06/20/20 06:23 06/20/20 06:23 06/19/20 06/20/20 06/20/20 05:56 06:23 06:23 WBC 14.1 H RBC 4.06 L Hgb 11.6 L Hct 35.3 L MCV 86.9 MCH 28.6 MCHC 32.9 RDW 13.5 Plt Count 153 MPV 11.1 H Immature Gran % (Auto) 0.5 Neut % (Auto) 85.1 H Lymph % (Auto) 6.8 L [place] % (Auto) 7.3 Eos % (Auto) 0.1 Baso % (Auto) 0.2 Lymph # (Auto) 0.96 [place] # (Auto) 1.0 H Eos # (Auto) 0.0 Baso # (Auto) 0.0 Abs Immat Gran (auto) 0.07 H Absolute Neuts (auto) 12.0 H Absolute Nucleated RBC 0.0 Nucleated RBC % 0.0 Sodium 140 Potassium 4.1 Chloride 104 Carbon Dioxide 32 H Anion Gap 4 L BUN 13 D Creatinine 0.80 Estim Creat Clear Calc 69 Estimated GFR > 60 Glucose 119 H Calcium 8.4 Blood Type O Positive Antibody Screen Negative Post-procedural complaints: none Patient Feedback: Patient satisfied with anesthetic care.
[2020-06-20] MEDS: CITALOPRAM HYDROBROMIDE 10 MG TABLET PO (08:56)
[2020-06-20] MEDS: DOCUSATE SODIUM 100 MG CAPSULE PO (08:56)
[2020-06-20] MEDS: MEMANTINE HCL XR 28 MG CAP PO (08:57)
[2020-06-20] MEDS: LORATADINE 10 MG TABLET PO (08:57)
--- NOTE | 2020-06-20 09:41 | PM.PNORT ---
Progress Note: A&P Assessment and Plan (1) Fracture of hip, left, closed: Qualifiers: Encounter type: subsequent encounter Fracture healing: with routine healing Qualified Code(s): S72.002D - Fracture of unspecified part of neck of left femur, subsequent encounter for closed fracture with routine healing Code(s): S72.002A - Fracture of unspecified part of neck of left femur, initial encounter for closed fracture Status: Acute Assessment and Plan: POD #1: CRPP Left Hip Continue PT/OT. TTWB. HIGH FALL RISK. Continue pain control. IV tylenol. Monitor urine output. Monitor dressing. Change daily. SCDs. Incentive spirometry. DVT prophylaxis. Dispo: SNF when medically stable Subjective Subjective Date/Time Seen: 06/20/20 09:41 Post Op day: 1 (Left Hip Fracture ) Interval history: POD #1: CRPP Left Hip Fracture No complaints. Resting comfortably in bed. Bloody urine noted in cheng bag. Per nurse, patient has been pulling on cheng overnight. Review of Systems Review of Systems: ROS unobtainable: Yes unobtainable due to mental status Exam Const: General: comfortable and no acute distress Resp: Effort & Inspection: normal respiratory effort Cardio: Rate: regular rate Rhythm: regular rhythm GI: Inspection: non-distended GI Palp: Yes Soft to palpation and No Tenderness to palpation present (GI) Urinary Catheter: Urinary Catheter: urine red Skin: Other: Incision lateral hip c/d/i. Neuro: Cognition (Neuro): abnormal cognition (dementia at baseline. ) Extrem: Left lower extremity: hip/thigh (incision c/d/i. ) Details: tenderness (mild lateral hip tenderness to palpation ), knee Details: normal to inspection, lower leg (Negative Jax's Sign ) Details: normal to inspection; no tenderness and no localized swelling, ankle (+ankle dorsiflexion/plantarflexion ) and foot (2+ pedal pulses. ) Details: normal capillary refill and no edema; no tenderness Objective Data Vital Signs Vital Signs: Vital Signs - 24 hr 06/19/20 14:00 06/19/20 15:37 06/19/20 17:46 Temperature 37.1 C 37.7 C H 36.4 C Pulse Rate 80 86 101 H Respiratory Rate 14 20 15 Blood Pressure 134/64 132/61 180/85 H Pulse Oximetry 98 93 99 06/19/20 18:00 06/19/20 18:10 06/19/20 18:25 Temperature Pulse Rate 95 87 89 Respiratory Rate 15 14 14 Blood Pressure 160/80 H 145/81 H 147/71 H Pulse Oximetry 100 100 96 06/19/20 18:35 06/19/20 18:45 06/19/20 18:48 Temperature 36.6 C Pulse Rate 85 82 96 Respiratory Rate 14 14 18 Blood Pressure 141/67 H 137/72 169/84 H Pulse Oximetry 98 98 97 06/19/20 19:03 06/19/20 19:33 06/19/20 20:33 Temperature 36.3 C L 36.6 C 36.5 C Pulse Rate 82 86 85 Respiratory Rate 14 14 14 Blood Pressure 135/71 147/77 H 142/83 H Pulse Oximetry 100 97 100 06/20/20 00:33 06/20/20 04:33 Temperature 37.2 C 36.9 C Pulse Rate 86 99 Respiratory Rate 14 16 Blood Pressure 149/75 H 149/93 H Pulse Oximetry 95 93 Intake/Output Intake/Output: Intake & Output 06/17/20 06/18/20 06/19/20 06/20/20 23:59 23:59 23:59 23:59 Intake Total 300 1050 Output Total 150 1400 Balance 150 -350 Meds/Results Medications: Active Medications Generic Name Dose Route Start Last Admin Trade Name Brianq PRN Reason Stop Dose Admin Atorvastatin Calcium 10 mg 06/19/20 18:00 06/19/20 21:23 Atorvastatin 10 Mg Tablet PO Not Given QPM RIKI Citalopram Hydrobromide 10 mg 06/20/20 09:00 06/20/20 08:56 Citalopram Hydrobromide 10 Mg Tablet PO 10 mg DAILY RIKI Administration Diazepam 5 mg 06/19/20 18:48 Diazepam (*Crx) 5 Mg Tablet PO Q8H PRN Muscle Spasm Divalproex Sodium 250 mg 06/19/20 14:00 06/20/20 05:[address] 250 Mg Tabec PO 250 mg Q8H RIKI Administration Docusate Sodium 100 mg 06/19/20 17:00 06/20/20 08:56 Docusate Sodium 100 Mg Capsule PO 100 mg BID RIKI Administration Docusate Sodium 100 mg 06/20/20 09:00
[2020-06-20 10:00] VITALS: BP 110/54; PULSE 94; RESP 18; TEMP 36.8; O2SAT 93
--- NOTE | 2020-06-20 10:46 | PM.IMPN ---
Progress Note: A&P Assessment and Plan (1) Fracture of hip, left, closed: Qualifiers: Encounter type: subsequent encounter Fracture healing: with routine healing Qualified Code(s): S72.002D - Fracture of unspecified part of neck of left femur, subsequent encounter for closed fracture with routine healing Code(s): S72.002A - Fracture of unspecified part of neck of left femur, initial encounter for closed fracture Status: Acute Assessment and Plan: 06/20/20 10:46 Vic Carroll is a 74 year old male resident of [facility] with history of dementia and agitation, patient had been agitated apparently patient had a witnessed fall by [facility] staff he landed on in his knees and has a rug burn on his forehead and patient was brought to the emergency department for further evaluation, hip x-ray showed subchondral fracture of left femoral neck. Patient is a poor historian unable to provide any review of symptoms or history, most of the history is recorded from electronic chart, patient chest x-ray showed patient Has Had CABG suggesting patient has a coronary artery disease to further evaluate we have ordered cardiac echo and further recommendation to follow, patient will be seen by orthopedic surgery team and will follow-up and plan. Patient is chronically anticoagulated with Xarelto, currently on hold for surgery, further recommendation according to orthopedic surgeon. 06/20 s/p closed reduction and percutaneous pinning on 06/19 patient is clinically stable, seen by ortho service, IV Tylenol for pain, and daily dressing change, Xarelto for DVT prophylaxis, will participate in PT/OT and further recommendation to follow. (2) Dementia, unspecified, without behavioral disturbance: Code(s): F03.90 - Unspecified dementia without behavioral disturbance Status: Acute Assessment and Plan: Will continue home regimen and monitor (3) Essential hypertension: Code(s): I10 - Essential (primary) hypertension Status: Acute Assessment and Plan: Will continue home regimen and monitor (4) Coronary artery disease involving [place] coronary artery of [place] heart: Code(s): I25.10 - Atherosclerotic heart disease of [place] coronary artery without angina pectoris Status: Acute Assessment and Plan: Will continue home regimen and monitor, we have ordered cardiac echo to further evaluate. Subjective Date/time seen: 06/20/20 10:46 Vic Carroll is a 74 year old male resident of [facility] with history of dementia and agitation, patient had been agitated apparently patient had a witnessed fall by [facility] staff he landed on in his knees and has a rug burn on his forehead and patient was brought to the emergency department for further evaluation, hip x-ray showed subchondral fracture of left femoral neck. Patient is a poor historian unable to provide any review of symptoms or history, most of the history is recorded from electronic chart, patient chest x-ray showed patient Has Had CABG suggesting patient has a coronary artery disease to further evaluate we have ordered cardiac echo and further recommendation to follow, patient will be seen by orthopedic surgery team and will follow-up and plan. Patient is chronically anticoagulated with Xarelto, currently on hold for surgery, further recommendation according to orthopedic surgeon. 06/20 s/p closed reduction and percutaneous pinning on 06/19 patient is clinically stable, seen by ortho service, IV Tylenol for pain, and daily dressing change, Xarelto for DVT prophylaxis, will participate in PT/OT and further recommendation to follow. Review of Systems Review of Systems: ROS unobtainable: Yes unobtainable due to medical condition Exam Narrative: Exam Narrative: Patient appears chronically ill Patient is comfortable, NAD HEENT: eyes are clear and none icteric LUNGS:CTA HEART: RR S1S2 ABD: BS+, Soft and nontender Lower
[2020-06-20 14:00] VITALS: BP 102/78; PULSE 95; RESP 16; TEMP 36.9; O2SAT 96
--- NOTE | 2020-06-20 15:00 | PC.NURSE ---
Went to room to check on patient and found him holding his cheng catheter in his hand. Catheter was pulled out by patient. Bulb was deflated when I found patient holding the catheter. Small amount bloody drainage noted from penis. Called Dr. Zaidi's office and left message with Hafsa ESQUEDA regarding same. Patient also appeared to become more confused and agitated after receiving Morphine for left hip pain. Gave Valium po for muscle spasms as patient is holding hip and saying something hurts here . Left message at Dr. Zaidi's office requesting a po pain medication for patient.
[2020-06-20] MEDS: diazePAM (*CRX) 5 MG TABLET PO (15:04)
--- NOTE | 2020-06-20 15:23 | PC.NURSE ---
Patient will not keep ice on left hip. Patient has also pulled off coverlet dressing to left hip 3 times today. Found patient scratching at russell along incision line. Replaced coverlet dressing.
--- NOTE | 2020-06-20 16:15 | PC.NURSE ---
Found patient chewing on a piece of tape taken from his IV depends. Retrieved tape from patient's mouth. Patient had pulled out IV site and had dressing removed from left hip again. Dressing replaced to left hip. IV site replaced and wrapped with kerlix roll. Patient moved to room 256 for closer observation.
[2020-06-20] MEDS: RIVAROXABAN 20 MG TABLET PO (17:26)
[2020-06-20] MEDS: ATORVASTATIN 10 MG TABLET PO (17:27)
[2020-06-20] MEDS: LOSARTAN POTASSIUM 50 MG TABLET PO (17:28)
[2020-06-20] MEDS: traZODone HCL 50 MG TABLET PO (17:28)
[2020-06-20 18:00] VITALS: BP 104/52; PULSE 100; RESP 16; TEMP 37.6; O2SAT 93
[2020-06-20 20:33] VITALS: RESP 20; TEMP 36.6
[2020-06-20] MEDS: DONEPEZIL HCL 5 MG TABLET PO (20:49)
[2020-06-21] MEDS: HYDROcodone/acetaminophen (*CRX) 5-325 MG TABLET 1 TAB PO ×3 (01:01→21:04)
[2020-06-21] MEDS: diazePAM (*CRX) 5 MG TABLET PO (04:32)
[2020-06-21] MEDS: DIVALPROEX SODIUM SPRINKLE 125 MG CAP.DR 250 MG PO ×3 (04:37→21:04)
[2020-06-21 05:03] VITALS: BP 151/70; PULSE 95; RESP 20; TEMP 36.2; O2SAT 90
[2020-06-21 08:47] LABS: Anion Gap 2 mmol/L (8-16); Blood Urea Nitrogen 16 mg/dL (9-20); Calcium 8.6 mg/dL (8.4-10.2); Carbon Dioxide 33 mmol/L (22-30); Chloride 105 mmol/L (98-107); Estimated CRCL calculation 90 ml/min; Estimated Glomerular Filt Rate > 60; Glucose 124 mg/dL (75-110); Potassium 3.6 mmol/L (3.4-5.0); Sodium 140 mmol/L (137-145)
[2020-06-21 09:02] LABS: Hematocrit 35.5 % (42.0-52.0); Hemoglobin 11.5 g/dL (14.0-18.0); Mean Corpuscular HGB Conc 32.4 g/dl (32-36); Mean Corpuscular Volume 89.4 fl (80-100); Mean Platelet Volume 10.7 fl (7.4-10.4); Platelet Count Result 143 k/mm3 (150-375); Red Blood Count 3.97 M/mm3 (4.6-6.20); Red Cell Distribution Width 13.7 % (11.5-14.5); White Blood Count 13.5 K/mm3 (4.5-10.0)
[2020-06-21] MEDS: MEMANTINE HCL XR 28 MG CAP PO (09:27)
[2020-06-21] MEDS: LORATADINE 10 MG TABLET PO (09:27)
[2020-06-21] MEDS: DOCUSATE SODIUM 100 MG CAPSULE PO ×2 (09:27→17:41)
[2020-06-21] MEDS: CITALOPRAM HYDROBROMIDE 10 MG TABLET PO (09:27)
[2020-06-21 10:00] VITALS: BP 180/61; PULSE 94; RESP 17; TEMP 37; O2SAT 94
--- NOTE | 2020-06-21 11:15 | PM.IMPN ---
Progress Note: A&P Assessment and Plan (1) Fracture of hip, left, closed: Qualifiers: Encounter type: subsequent encounter Fracture healing: with routine healing Qualified Code(s): S72.002D - Fracture of unspecified part of neck of left femur, subsequent encounter for closed fracture with routine healing Code(s): S72.002A - Fracture of unspecified part of neck of left femur, initial encounter for closed fracture Status: Acute Assessment and Plan: 06/21/20 11:15 Vic Carroll is a 74 [facility] old male [facility] of [facility] with history of dementia and agitation, patient had been agitated apparently patient had a witnessed fall by [facility] staff he landed on in his knees and has a rug burn on his forehead and patient was brought to the emergency department for further evaluation, hip x-ray showed subchondral fracture of left femoral neck. Patient is a poor historian unable to provide any review of symptoms or history, most of the history is recorded from electronic chart, patient chest x-ray showed patient Has Had CABG suggesting patient has a coronary artery disease to further evaluate we have ordered cardiac echo and further recommendation to follow, patient will be seen by orthopedic surgery team and will follow-up and plan. Patient is chronically anticoagulated with Xarelto, currently on hold for surgery, further recommendation according to orthopedic surgeon. 06/20 s/p closed reduction and percutaneous pinning on 06/19 patient is clinically stable, seen by ortho service, IV Tylenol for pain, and daily dressing change, Xarelto for DVT prophylaxis, will participate in PT/OT and further recommendation to follow. 06/20 s/p closed reduction and percutaneous pinning (CRPP) on 06/19 patient is clinically stable, seen by ortho service, IV Tylenol for pain, and daily dressing change, Xarelto for DVT prophylaxis, will participate in PT/OT, patient with psychiatric illness and dementia we have continued home medications. patient will be seen by surgery team and further recommendation to follow. (2) Dementia, unspecified, without behavioral disturbance: Code(s): F03.90 - Unspecified dementia without behavioral disturbance Status: Acute Assessment and Plan: Will continue home regimen and monitor (3) Essential hypertension: Code(s): I10 - Essential (primary) hypertension Status: Acute Assessment and Plan: Will continue home regimen and monitor (4) Coronary artery disease involving [place] coronary artery of [place] heart: Code(s): I25.10 - Atherosclerotic heart disease of [place] coronary artery without angina pectoris Status: Acute Assessment and Plan: Will continue home regimen and monitor, we have ordered cardiac echo to further evaluate. Subjective Date/time seen: 06/21/20 11:15 Vic Carroll is a 74 year old male resident of [facility] with history of dementia and agitation, patient had been agitated apparently patient had a witnessed fall by [facility] staff he landed on in his knees and has a rug burn on his forehead and patient was brought to the emergency department for further evaluation, hip x-ray showed subchondral fracture of left femoral neck. Patient is a poor historian unable to provide any review of symptoms or history, most of the history is recorded from electronic chart, patient chest x-ray showed patient Has Had CABG suggesting patient has a coronary artery disease to further evaluate we have ordered cardiac echo and further recommendation to follow, patient will be seen by orthopedic surgery team and will follow-up and plan. Patient is chronically anticoagulated with Xarelto, currently on hold for surgery, further recommendation according to orthopedic surgeon. 06/20 s/p closed reduction and percutaneous pinning on 06/19 patient is clinically stable, seen by ortho service, IV Tylenol for pain, and daily dressing change, Xarelto for DV
[2020-06-21 14:00] VITALS: BP 194/67; PULSE 93; RESP 12; TEMP 37.1; O2SAT 95
--- NOTE | 2020-06-21 17:32 | PM.PNORT ---
Progress Note: A&P Additional Plan POD 1 CONFUSED BUT OTHERWISE EXPECTED. CONTINUE DRESSING CHANGES NEEDED. Subjective Subjective Date/Time Seen: 06/21/20 17:32 POD 1 DOING WELL. VERY DEMENTED. PULLING OFF HIS DRESSING AND PICKING AT HIS WOUND. Exam Extrem: Other: VSS AFEBRILE DRESSING DRY [place] INTACT NEG [employer]OM[employer] SIGN Objective Data Vital Signs Vital Signs: Vital Signs - 24 hr 06/20/20 18:00 06/20/20 20:33 06/21/20 05:03 Temperature 37.6 C 36.6 C 36.2 C L Pulse Rate 100 95 Respiratory Rate 16 20 20 Blood Pressure 104/52 L 151/70 H Pulse Oximetry 93 90 06/21/20 10:00 06/21/20 14:00 Temperature 37.0 C 37.1 C Pulse Rate 94 93 Respiratory Rate 17 12 Blood Pressure 180/61 H 194/67 H Pulse Oximetry 94 95 Intake/Output Intake/Output: Intake & Output 06/18/20 06/19/20 06/20/20 06/21/20 23:59 23:59 23:59 23:59 Intake Total 300 2550 360 Output Total 150 2150 Balance 150 400 360 Meds/Results Medications: Active Medications Generic Name Dose Route Start Last Admin Trade Name Freq PRN Reason Stop Dose Admin Hydrocodone Bitart/Acetaminophen 1 tab 06/20/20 16:44 06/21/20 09:32 Hydrocodone/Acetaminophen (*Crx) 5-325 Mg Tablet PO 1 tab Q6H PRN Administration Pain Rated 6 or Greater Atorvastatin Calcium 10 mg 06/19/20 18:00 06/20/20 17:27 Atorvastatin 10 Mg Tablet PO 10 mg QPM RIKI Administration Citalopram Hydrobromide 10 mg 06/20/20 09:00 06/21/20 09:27 Citalopram Hydrobromide 10 Mg Tablet PO 10 mg DAILY RIKI Administration Diazepam 5 mg 06/19/20 18:48 06/21/20 04:32 Diazepam (*Crx) 5 Mg Tablet PO 5 mg Q8H PRN Administration Muscle Spasm Divalproex Sodium 250 mg 06/20/20 22:00 06/21/20 14:21 Divalproex Sodium Sprinkle 125 Mg Cap.Dr PO 250 mg Q8H RIKI Administration Docusate Sodium 100 mg 06/19/20 17:00 06/21/20 09:27 Docusate Sodium 100 Mg Capsule PO 100 mg BID RIKI Administration Donepezil HCl 5 mg 06/20/20 18:00 06/20/20 20:49 Donepezil Hcl 5 Mg Tablet PO 5 mg QPM RIKI Administration Fentanyl Citrate 25 mcg 06/19/20 12:42 06/19/20 18:35 Fentanyl Citrate Inj (*Crx) 100 Mcg/2 Ml Vial IV PUSH 25 mcg Q2M PRN Administration Pain Fluticasone Propionate 2 spray 06/19/20 14:00 Fluticasone Propionate 0.05% Na Spr 16 Gm Btl (*Bkc) NASAL DAILY PRN Nasal Congestion Loperamide HCl 2 mg 06/19/20 14:00 Loperamide Hcl 2 Mg Capsule PO Q4H PRN loose stool Loratadine 10 mg 06/20/20 09:00 06/21/20 09:27 Loratadine 10 Mg Tablet PO 10 mg QAM RIKI Administration Losartan Potassium 50 mg 06/19/20 18:00 06/20/20 17:28 Losartan Potassium 50 Mg Tablet PO 50 mg QPM RIKI Administration Magnesium Hydroxide 30 ml 06/19/20 18:48 Magnesium Hydroxide Susp 30 Ml Udc PO BID PRN Constipation Memantine 28 mg 06/20/20 09:00 06/21/20 09:27 Memantine Hcl Xr 28 Mg Cap PO 28 mg DAILY RIKI Administration Ondansetron HCl 4 mg 06/19/20 12:42 Ondansetron Inj 4 Mg/2 Ml Vial IV PUSH ONCE PRN Nausea Ondansetron HCl 4 mg 06/19/20 18:48 Ondansetron Inj 4 Mg/2 Ml Vial IV PUSH Q4H PRN Nausea And Vomiting Rivaroxaban 20 mg 06/20/20 17:00 06/20/20 17:26 Rivaroxaban 20 Mg Tablet PO 20 mg DAILY@1700 RIKI Administration Trazodone HCl 50 mg 06/19/20 18:00 06/20/20 17:28 Trazodone Hcl 50 Mg Tablet PO 50 mg QPM RIKI Administration Radiology Results: ITS Impressions Hip X-Ray 06/19/20 06:29 IMPRESSION: 1. Subcapital fracture of left femoral neck. 2. Mild left hip osteoarthritis. Knee X-Ray 06/19/20 06:31 IMPRESSION: 1. Mild left knee osteoarthritis. Chest X-Ray 06/19/20 06:55 IMPRESSION: 1. Mild atelectasis in lingula. Pelvis X-Ray 06/19/20 07:00 IMPRESSION: 1. Subchondral fracture of left femoral neck. 2. Mild osteoarthritis of the hips. Head CT 06/19/20 07:13 IM
[2020-06-21] MEDS: RIVAROXABAN 20 MG TABLET PO (17:41)
[2020-06-21] MEDS: LOSARTAN POTASSIUM 50 MG TABLET PO (17:41)
[2020-06-21] MEDS: DONEPEZIL HCL 5 MG TABLET PO (17:42)
[2020-06-21] MEDS: traZODone HCL 50 MG TABLET PO (17:42)
[2020-06-21] MEDS: ATORVASTATIN 10 MG TABLET PO (17:42)
[2020-06-21 21:59] VITALS: BP 174/70; PULSE 100; RESP 20; TEMP 36.6; O2SAT 93
[2020-06-22] MEDS: HYDROcodone/acetaminophen (*CRX) 5-325 MG TABLET 1 TAB PO (04:00)
[2020-06-22 04:51] VITALS: PULSE 90
[2020-06-22] MEDS: LABETALOL HCL INJ 100 MG/20 ML VIAL 10 MG IV PUSH (04:51)
[2020-06-22 05:02] VITALS: BP 185/76; PULSE 90; RESP 18; TEMP 36.5; O2SAT 96
[2020-06-22] MEDS: DIVALPROEX SODIUM SPRINKLE 125 MG CAP.DR 250 MG PO ×3 (06:42→21:53)
[2020-06-22 08:33] VITALS: BMI 10.0
[2020-06-22 08:37] LABS: Hematocrit 37.6 % (42.0-52.0); Hemoglobin 12.3 g/dL (14.0-18.0); Mean Corpuscular HGB Conc 32.7 g/dl (32-36); Mean Corpuscular Hemoglobin 28.9 pg (26-34); Mean Corpuscular Volume 88.5 fl (80-100); Mean Platelet Volume 10.4 fl (7.4-10.4); Platelet Count Result 157 k/mm3 (150-375); Red Blood Count 4.25 M/mm3 (4.6-6.20); Red Cell Distribution Width 13.7 % (11.5-14.5); White Blood Count 13.8 K/mm3 (4.5-10.0)
[2020-06-22 08:57] LABS: Anion Gap 4 mmol/L (8-16); Blood Urea Nitrogen 15 mg/dL (9-20); Calcium 8.3 mg/dL (8.4-10.2); Carbon Dioxide 33 mmol/L (22-30); Chloride 104 mmol/L (98-107); Estimated CRCL calculation 90 ml/min; Estimated Glomerular Filt Rate > 60; Glucose 121 mg/dL (75-110); Potassium 3.5 mmol/L (3.4-5.0); Sodium 141 mmol/L (137-145)
[2020-06-22] MEDS: amLODIPine BESYLATE 5 MG TABLET PO (09:35)
[2020-06-22] MEDS: DOCUSATE SODIUM 100 MG CAPSULE PO ×2 (09:36→16:31)
[2020-06-22] MEDS: CITALOPRAM HYDROBROMIDE 10 MG TABLET PO (09:36)
[2020-06-22] MEDS: LORATADINE 10 MG TABLET PO (09:37)
[2020-06-22] MEDS: MEMANTINE HCL XR 28 MG CAP PO (09:37)
--- NOTE | 2020-06-22 10:15 | PM.IMPN ---
Progress Note: A&P Assessment and Plan (1) Fracture of hip, left, closed: Qualifiers: Encounter type: subsequent encounter Fracture healing: with routine healing Qualified Code(s): S72.002D - Fracture of unspecified part of neck of left femur, subsequent encounter for closed fracture with routine healing Code(s): S72.002A - Fracture of unspecified part of neck of left femur, initial encounter for closed fracture Status: Acute Assessment and Plan: 06/22/20 10:15 Vic Carroll is a 74 year old male resident of [facility] with history of dementia and agitation, patient had been agitated apparently patient had a witnessed fall by [facility] staff he landed on in his knees and has a rug burn on his forehead and patient was brought to the emergency department for further evaluation, hip x-ray showed subchondral fracture of left femoral neck. Patient is a poor historian unable to provide any review of symptoms or history, most of the history is recorded from electronic chart, patient chest x-ray showed patient Has Had CABG suggesting patient has a coronary artery disease to further evaluate we have ordered cardiac echo and further recommendation to follow, patient will be seen by orthopedic surgery team and will follow-up and plan. Patient is chronically anticoagulated with Xarelto, currently on hold for surgery, further recommendation according to orthopedic surgeon. 06/20 s/p closed reduction and percutaneous pinning on 06/19 patient is clinically stable, seen by ortho service, IV Tylenol for pain, and daily dressing change, Xarelto for DVT prophylaxis, will participate in PT/OT and further recommendation to follow. 06/21 s/p closed reduction and percutaneous pinning (CRPP) on 06/19 patient is clinically stable, seen by ortho service, IV Tylenol for pain, and daily dressing change, Xarelto for DVT prophylaxis, will participate in PT/OT, patient with psychiatric illness and dementia we have continued home medications. patient will be seen by surgery team and further recommendation to follow. 06/22 s/p closed reduction and percutaneous pinning (CRPP) on 06/19 patient is clinically stable, seen by ortho service, IV Tylenol for pain, and daily dressing change, Xarelto for DVT prophylaxis, will participate in PT/OT, patient with psychiatric illness and dementia we have continued home medications. patient is confused, patient BP is elevated most likely 2/2 to pain from surgical site, patient is taking losartan, I have added Norvasc 5mg qd, will monitor daily. patient will be seen by surgery team and further recommendation to follow. (2) Dementia, unspecified, without behavioral disturbance: Code(s): F03.90 - Unspecified dementia without behavioral disturbance Status: Acute Assessment and Plan: Will continue home regimen and monitor (3) Essential hypertension: Code(s): I10 - Essential (primary) hypertension Status: Acute Assessment and Plan: Will continue home regimen and monitor (4) Coronary artery disease involving [place] coronary artery of [place] heart: Code(s): I25.10 - Atherosclerotic heart disease of [place] coronary artery without angina pectoris Status: Acute Assessment and Plan: Will continue home regimen and monitor, we have ordered cardiac echo to further evaluate. Subjective Date/time seen: 06/22/20 10:15 Vic Carroll is a 74 year old male resident of [facility] with history of dementia and agitation, patient had been agitated apparently patient had a witnessed fall by [facility] staff he landed on in his knees and has a rug burn on his forehead and patient was brought to the emergency department for further evaluation, hip x-ray showed subchondral fracture of left femoral neck. Patient is a poor historian unable to provide any review of symptoms or history, most of the history is recorded from electronic chart, patient chest x-ray showe
--- NOTE | 2020-06-22 12:42 | PM.PNORT ---
Progress Note: A&P Assessment and Plan (1) Fracture of hip, left, closed: Qualifiers: Encounter type: subsequent encounter Fracture healing: with routine healing Qualified Code(s): S72.002D - Fracture of unspecified part of neck of left femur, subsequent encounter for closed fracture with routine healing Code(s): S72.002A - Fracture of unspecified part of neck of left femur, initial encounter for closed fracture Status: Acute Assessment and Plan: POD #3: CRPP Left Hip Continue PT/OT. TTWB. HIGH FALL RISK. Continue pain control. IV tylenol. Monitor dressing. Change daily. SCDs. Incentive spirometry. DVT prophylaxis. Dispo: SNF when medically stable Subjective Subjective Date/Time Seen: 06/22/20 12:42 POD #3: CRPP Left Hip Resting comfortably in bed. No obvious signs of pain. Patient reports he is doing well but my brain is not right Review of Systems Review of Systems: ROS unobtainable: Yes unobtainable due to mental status Exam Const: General: comfortable and no acute distress Resp: Effort & Inspection: normal respiratory effort Cardio: Rate: regular rate Rhythm: regular rhythm GI: Inspection: non-distended Skin: General skin exam: normal color Wounds: wounds noted (incision left hip C/D/I ) Extrem: Right lower extremity: normal to inspection, full ROM and normal capillary refill Left lower extremity: hip/thigh Details: tenderness Location: of the hip Location: laterally and anteriorly, swelling (thigh soft ) Location: of the hip (lateral. ), abnormal ROM (limitations with internal/external rotation and flexion/extension due to recent surgical intervention ) and other (incision lateral hip c/d/i. ), knee Details: normal to inspection and normal ROM; no tenderness and no swelling, lower leg (Negative Jax's Sign ) Details: no edema, ankle (+ankle dorsiflexion/plantarflexion ) Details: normal to inspection, no edema and normal ROM; no tenderness, no swelling and no warmth and foot Details: normal capillary refill, toes with normal ROM, vascular exam Details: dorsalis pedis pulse present and motor-sensory exam light-touch normal in all toes; no tenderness, no ecchymosis and no crepitus Psych: Thought content: Yes other (dementia ) Objective Data Vital Signs Vital Signs: Vital Signs - 24 hr 06/21/20 14:00 06/21/20 21:59 06/22/20 04:51 Temperature 37.1 C 36.6 C Pulse Rate 93 100 90 Respiratory Rate 12 20 Blood Pressure 194/67 H 174/70 H Pulse Oximetry 95 93 06/22/20 05:02 Temperature 36.5 C Pulse Rate 90 Respiratory Rate 18 Blood Pressure 185/76 H Pulse Oximetry 96 Intake/Output Intake/Output: Intake & Output 06/19/20 06/20/20 06/21/20 06/22/20 23:59 23:59 23:59 23:59 Intake Total 300 2550 760 0 Output Total 150 2150 Balance 150 400 760 0 Meds/Results Medications: Active Medications Generic Name Dose Route Start Last Admin Trade Name Freq PRN Reason Stop Dose Admin Hydrocodone Bitart/Acetaminophen 1 tab 06/20/20 16:44 06/22/20 04:00 Hydrocodone/Acetaminophen (*Crx) 5-325 Mg Tablet PO 1 tab Q6H PRN Administration Pain Rated 6 or Greater Amlodipine Besylate 5 mg 06/22/20 09:00 06/22/20 09:35 Amlodipine Besylate 5 Mg Tablet PO 5 mg QAM RIKI Administration Atorvastatin Calcium 10 mg 06/19/20 18:00 06/21/20 17:42 Atorvastatin 10 Mg Tablet PO 10 mg QPM RIKI Administration Citalopram Hydrobromide 10 mg 06/20/20 09:00 06/22/20 09:36 Citalopram Hydrobromide 10 Mg Tablet PO 10 mg DAILY RIKI Administration Diazepam 5 mg 06/19/20 18:48 06/21/20 04:32 Diazepam (*Crx) 5 Mg Tablet PO 5 mg Q8H PRN Administration Muscle Spasm Divalproex Sodium 250 mg 06/20/20 22:00 06/22/20 06:42 Divalproex Sodium Sprinkle 125 Mg Cap.Dr PO 250 mg Q8H RIKI Administration Docusate Sodium 100 mg 06/19/20 17:00 06/22/20 09:36 Docusate Sodium 100 Mg Capsule PO 100 mg BID RIKI Admin
[2020-06-22 14:00] VITALS: BP 132/92; PULSE 92; RESP 18; TEMP 36.7; O2SAT 96
[2020-06-22] MEDS: RIVAROXABAN 20 MG TABLET PO (16:31)
[2020-06-22 16:53] LABS: SARS-CoV-2 RNA PCR Negative
[2020-06-22] MEDS: traZODone HCL 50 MG TABLET PO (17:00)
[2020-06-22] MEDS: LOSARTAN POTASSIUM 50 MG TABLET PO (17:00)
[2020-06-22] MEDS: ATORVASTATIN 10 MG TABLET PO (17:00)
[2020-06-22] MEDS: DONEPEZIL HCL 5 MG TABLET PO (17:00)
[2020-06-22 21:50] VITALS: BP 120/76; PULSE 100; RESP 16; TEMP 36.7; O2SAT 98
[2020-06-23 05:34] LABS: Hematocrit 38.5 % (42.0-52.0); Hemoglobin 12.4 g/dL (14.0-18.0); Mean Corpuscular HGB Conc 32.2 g/dl (32-36); Mean Corpuscular Hemoglobin 28.6 pg (26-34); Mean Corpuscular Volume 88.9 fl (80-100); Mean Platelet Volume 10.1 fl (7.4-10.4); Platelet Count Result 184 k/mm3 (150-375); Red Blood Count 4.33 M/mm3 (4.6-6.20); Red Cell Distribution Width 13.8 % (11.5-14.5); White Blood Count 15.2 K/mm3 (4.5-10.0)
[2020-06-23 05:50] LABS: Anion Gap 2 mmol/L (8-16); Blood Urea Nitrogen 21 mg/dL (9-20); Calcium 8.7 mg/dL (8.4-10.2); Carbon Dioxide 36 mmol/L (22-30); Chloride 104 mmol/L (98-107); Estimated CRCL calculation 79 ml/min; Estimated Glomerular Filt Rate > 60; Glucose 114 mg/dL (75-110); Potassium 3.5 mmol/L (3.4-5.0); Sodium 142 mmol/L (137-145)
[2020-06-23] MEDS: DIVALPROEX SODIUM SPRINKLE 125 MG CAP.DR 250 MG PO ×2 (06:25→13:51)
[2020-06-23 06:56] VITALS: BP 124/79; PULSE 94; RESP 16; TEMP 36.7; O2SAT 99
[2020-06-23] MEDS: LORATADINE 10 MG TABLET PO (09:05)
[2020-06-23] MEDS: DOCUSATE SODIUM 100 MG CAPSULE PO (09:05)
[2020-06-23] MEDS: amLODIPine BESYLATE 5 MG TABLET PO (09:05)
[2020-06-23 09:06] VITALS: RESP 16; O2SAT 99
[2020-06-23] MEDS: CITALOPRAM HYDROBROMIDE 10 MG TABLET PO (09:06)
[2020-06-23] MEDS: MEMANTINE HCL XR 28 MG CAP PO (09:06)
--- NOTE | 2020-06-23 09:26 | PM.DS ---
DS: Admitting Diagnosis Admitting Diagnosis Admitting Diagnosis: Chief Complaint: Fall and fracture of the hip. DS: Discharge Diagnosis Discharge Diagnosis (1) Fracture of hip, left, closed: Qualifiers: Encounter type: subsequent encounter Fracture healing: with routine healing Qualified Code(s): S72.002D - Fracture of unspecified part of neck of left femur, subsequent encounter for closed fracture with routine healing Code(s): S72.002A - Fracture of unspecified part of neck of left femur, initial encounter for closed fracture Status: Acute Assessment and Plan: 06/22/20 10:15 Vic Carroll is a 74 [facility] male resident of [facility] with history of dementia and agitation, patient had been agitated apparently patient had a witnessed fall by [facility] staff he landed on in his knees and has a rug burn on his forehead and patient was brought to the emergency department for further evaluation, hip x-ray showed subchondral fracture of left femoral neck. Patient is a poor historian unable to provide any review of symptoms or history, most of the history is recorded from electronic chart, patient chest x-ray showed patient Has Had CABG suggesting patient has a coronary artery disease to further evaluate we have ordered cardiac echo and further recommendation to follow, patient will be seen by orthopedic surgery team and will follow-up and plan. Patient is chronically anticoagulated with Xarelto, currently on hold for surgery, further recommendation according to orthopedic surgeon. 06/20 s/p closed reduction and percutaneous pinning on 06/19 patient is clinically stable, seen by ortho service, IV Tylenol for pain, and daily dressing change, Xarelto for DVT prophylaxis, will participate in PT/OT and further recommendation to follow. 06/21 s/p closed reduction and percutaneous pinning (CRPP) on 06/19 patient is clinically stable, seen by ortho service, IV Tylenol for pain, and daily dressing change, Xarelto for DVT prophylaxis, will participate in PT/OT, patient with psychiatric illness and dementia we have continued home medications. patient will be seen by surgery team and further recommendation to follow. 06/22 s/p closed reduction and percutaneous pinning (CRPP) on 06/19 patient is clinically stable, seen by ortho service, IV Tylenol for pain, and daily dressing change, Xarelto for DVT prophylaxis, will participate in PT/OT, patient with psychiatric illness and dementia we have continued home medications. patient is confused, patient BP is elevated most likely 2/2 to pain from surgical site, patient is taking losartan, I have added Norvasc 5mg qd, will monitor daily. patient will be seen by surgery team and further recommendation to follow. DS: Summary Hospital Course Reason for hospitalization: Chief Complaint: Fall and fracture of the hip. Narrative: Vic Carrlol is a 74 [facility] old male resident of [facility] with history of dementia and agitation, patient had been agitated apparently patient had a witnessed fall by [facility] staff he landed on in his knees and has a rug burn on his forehead and patient was brought to the emergency department for further evaluation, hip x-ray showed subchondral fracture of left femoral neck. Patient is a poor historian unable to provide any review of symptoms or history, most of the history is recorded from electronic chart, patient chest x-ray showed patient Has Had CABG suggesting patient has a coronary artery disease to further evaluate we have ordered cardiac echo and further recommendation to follow, patient will be seen by orthopedic surgery team and will follow-up and plan. Hospital Course: Vic Carroll is a 74 year old male resident of [facility] with history of dementia and agitation, patient had been agitated apparently patient had a witnessed fall by [facility] staff he landed on in his knees and has a rug burn on his forehead and patient was brought
[2020-06-23 14:27] VITALS: BP 102/73; PULSE 97; RESP 16; TEMP 36.8; O2SAT 99
== END 2020-06-23 15:45 | DRG 482 ==
LOC: ANHED 06:37 → ANH2MED 07:22
PROVIDERS: Orthopaedic Surgery; Admitting Provider Family Medicine; Emergency Provider Emergency Medicine; PCP Nurse Practitioner Family; Visit Provider Family Medicine
PROC: 0QS734Z Reposition Left Upper Femur with Internal Fixation Device, Percutaneous Approach (ICD-10-PCS; principal; 2020-06-19 17:00)
DX: S72.012A Unspecified intracapsular fracture of left femur, initial encounter for closed fracture (principal); S00.81XA Abrasion of other part of head, initial encounter; W18.39XA Other fall on same level, initial encounter; Z20.822 Contact with and (suspected) exposure to COVID-19; F03.90 Unspecified dementia, unspecified severity, without behavioral disturbance, psychotic disturbance, mood disturbance, and anxiety; R45.1 Restlessness and agitation; I25.10 Atherosclerotic heart disease of native coronary artery without angina pectoris; I11.9 Hypertensive heart disease without heart failure; I48.0 Paroxysmal atrial fibrillation; E78.5 Hyperlipidemia, unspecified; I25.2 Old myocardial infarction; Z79.01 Long term (current) use of anticoagulants; Z79.899 Other long term (current) drug therapy; Z87.891 Personal history of nicotine dependence; Z95.1 Presence of aortocoronary bypass graft
CPT/HCPCS: 36415; 51701; 70450; 71045; 72125; 72170; 73502; 73564; 74176; 80048; 80053; 81001; 83605; 83690; 83880; 84484; 85025; 85027; 85610; 85730; 86140; 86850; 86900; 86901; 87040; 87077; 87186; 90471; 90715; 93005; 93306; 96361; 96374; 97110; 97161; 97166; 97530; 97535; 99285; A9270; C1713; C1769; C9803; G0378; J0131; J0690; J1100; J2060; J2270; J2310; J2405; J2704; J3010; J7030; J7040; J7120; U0003; U0005